=== PATIENT | female | born 1985 | race African-American/Black ===

== ENCOUNTER 2016-08-24 11:50 | Emergency (ER) | payer OTHER ==
[~2016-08-24] VITALS: Ht 152.4 cm; Wt 75.5 kg
[2016-08-24 11:55] VITALS: TEMP 36.9; Ht 152.4 cm; Wt 75.5 kg
[2016-08-24 12:10] VITALS: O2SAT 98
[2016-08-24] MEDS ORDERED: PRLSR20 PO (12:16)
[2016-08-24] MEDS ORDERED: ONDA4TAB46 PO (12:16)
[2016-08-24 12:55] LABS: BASO % 0.2 %; BASO ABS # 0.01 K/uL (0-0.2); COMPLETE YES; EOS % 1.7 %; HEMATOCRIT 41.4 % (37-47); LYMPH % 45.3 %; LYMPH ABS # 2.34 K/uL (1.2-3.4); MEAN CELL VOLUME 85.4 fL (80-100); MEAN CORPUSCULAR HEMOGLOBIN 29.9 pg (25-34); MEAN PLATELET VOLUME 10.2 fL (7.4-10.4); MONO % 6.6 %; NEUT % 46.2 %; PLATELET COUNT 356 K/uL (130-400); RED BLOOD COUNT 4.85 M/uL (4.2-5.4); WHITE BLOOD COUNT 5.16 K/uL (4.8-10.8)
--- NOTE | 2016-08-24 13:08 | DIAGNOSTIC IMAGING REPORT ---
ABDOMINAL ULTRASOUND, RIGHT UPPER QUADRANT HISTORY: Right upper quadrant abdominal pain. COMPARISON: None. FINDINGS: Liver is sonographically normal. There is no biliary ductal dilatation. No gallstones are identified. The pancreatic body is normal. The head and tail are obscured. There is no right hydronephrosis. IMPRESSION: No significant abnormality identified within the right upper quadrant. Electronically signed by: Luke Cristina M.D. 08/24/2016 1:06 PM Dictated Date/Time: 08/24/2016 1:06 PM
[2016-08-24 13:27] LABS: URINE APPEARANCE CLEAR (CLEAR); URINE BILIRUBIN NEG (NEG); URINE COLOR YELLOW; URINE EPITHELIAL CELL AUTO 0-5 /lpf (0-5); URINE NITRITE NEG (NEG); URINE SPECIFIC GRAVITY 1.004 (1.000-1.030); UROBILINOGEN NEG (NEG)
[2016-08-24 13:28] LABS: MANUAL MICROSCOPIC REQUIRED? NO; REVIEW REQ? NO
[2016-08-24 13:39] LABS: ALB/GLOB RATIO 0.9 (0.9-2); ALKALINE PHOSPHATASE 38 U/L (45-117); ALT/SGPT 25 U/L (12-78); BLOOD UREA NITROGEN 8 mg/dl (7-18); BUN/CREATININE RATIO 8.7 (10-20); CALCIUM 9.1 mg/dl (8.5-10.1); CARBON DIOXIDE 28 mmol/L (21-32); CHLORIDE 107 mmol/L (98-107); CREATININE 0.93 mg/dl (0.60-1.20); GLUCOSE 96 mg/dl (70-99); SODIUM 141 mmol/L (136-145)
[2016-08-24] MEDS ORDERED: IBUPROFEN 600 MG TAB PO STA (14:47)
[2016-08-24 16:10] VITALS: BP 116/73; PULSE 62; O2SAT 98
--- NOTE | 2016-08-24 16:31 | EMERGENCY ROOM VISIT NOTE ---
History First contact with patient: 12:02 Chief Complaint: SYNCOPE (NEAR SYNCOPE) Stated Complaint: SYNCOPE,DIZZINESS AND METAL TASTE IN MOUTH Nursing Triage Summary: patient feels SOB passed out last night. she also complains of pressure in her chest. History of Present Illness The patient is a 31 year old -[place] female prisoner who presents to the Emergency Room with complaints of a syncopal episode last night and another this morning. He significant physical activity at the time of the syncopal episodes. She felt short of breath last night prior to the surgery. She states that her blood pressure was initially high last night afterward, but it normalized overnight. She had a second episode today. Complaints of pressure in her chest. She notes there was a smell of fire and a metal taste in her mouth prior to both episodes. These were both witnessed. There was no seizure activity. She states she did have some antinausea medication just prior to both episodes. She denies any cold symptoms. No fevers, chills, sweats, or vomiting. She has had nausea and a mild headache. It does resolve with Motrin. She denies striking her head during either syncopal episode. No change in vision, speech, or hearing. No loss of motor function. She denies any numbness or tingling in her extremities. No prior history of similar episodes. No other treatment. She also states she has had right upper quadrant abdominal pain intermittently for the last several weeks. It has been associated with meals. He does make her nauseated. She is concerned about gallstones. She reportedly had an EKG last night that was unremarkable. Review of Systems REVIEW OF SYSTEM: HEENT: No dizziness, visual problems, hearing loss, or tinnitus. There is no difficulty swallowing and no oral lesions are present. LYMPH: No adenopathy. PULMONARY: No cough, shortness of breath, sputum production or hemoptysis. CARDIOVASCULAR: No chest pain, palpitations, shortness of breath or peripheral edema. GASTROINTESTINAL: No diarrhea, constipation, vomiting, or abdominal pain. GENITOURINARY: No dysuria, frequency, urgency or nocturia. NEUROLOGIC: No weakness, muscle tenderness, epilepsy or history of neurological problems. MUSCULOSKELETAL: No history of joint tenderness/swelling. No history of arthritis or arthralgias. Positive history of Aris's disease. SKIN: No rashes or lesions. PSYCHIATRIC: No history of depression or mental illness. ENDOCRINE: No history of diabetes, thyroid disorders, or abnormal hair growth. Past Medical/Surgical History Previous surgeries: Right leg surgery Medical history: Significant for diabetes and Clare's disease Family History noncontributory Social History Smoking Status: Never Smoker Smokeless Tobacco Use: No Alcohol Use: none Drug Use: none Marital Status: single Housing Status: other (incarcerated) Occupation Status: other (incarcerated) Current/Historical Medications Scheduled Omeprazole (Prilosec), 20 MG PO DAILY Scheduled PRN Ondansetron Hcl (Zofran), 4 MG PO TID PRN for Nausea Allergies Coded Allergies: Iodinated Diagnostic Agents (Verified Allergy, Unknown, HIVES, 08/24/16) Meloxicam (Verified Allergy, Unknown, HIVES, 08/24/16) Penicillins (Verified Allergy, Unknown, HIVES, 08/24/16) Vancomycin (Verified Allergy, Unknown, ANAPHYLAXIS, 08/24/16) Physical Exam Vital Signs Date Time Temp Pulse Resp B/P Pulse Ox O2 Delivery O2 Flow Rate FiO2 08/24/16 16:10 62 24 116/73 98 08/24/16 14:45 67 20 132/95 98 Room Air 08/24/16 13:35 78 08/24/16 13:15 66 24 132/84 97 Room Air 08/24/16 12:26 68 115/87 99 Room Air 08/24/16 12:10 98 Room Air 08/24/16 11:55 36.9 75 16 165/99 98 Room Air Pain Rating (0-10): 0 Physical Exam Gen.: Well-developed, well-nourished, young -[place] female, in no acute distress. Laying on a bed. Alert and oriented. Skin:Warm and dry with good turgor. No rashes or lesions. No ecchymosis or erythema. The patient is not diaphoretic. No abrasions. Multiple tattoos. HEENT: Normocephalic atraumatic. Eyes PERRLA, EOMI. No conjunctiva or scleral injection. Ears TMs intact bilaterally with good light reflexes. No erythema or bulging. No hemotympanum. Canals are patent. Nares patent bilaterally without turbinate enlargement. No significant drainage. No epistaxis. Oropharynx without erythema or exudate. Uvula midline, oral mucosa moist. No lesions present. Heart: Heart RRR. No MGR. Peripheral pulses are 2+. Lungs: Lungs are clear to auscultation. No crackles rhonchi or wheezing. Good air movement. The patient is able to take a deep breath. Abdomen: Abdomen was inspected, auscultated, and palpated. Bowel sounds present x 4. Soft, nontender to palpation. No hepato-splenomegaly. No masses noted. No rebound. No CVA tenderness. Musculoskeletal: Gross motor function of the upper and lower extremities is intact and unremarkable. Neurologic: cranial nerves II through XII are intact. Gross sensation is intact across the upper and lower extremities by soft touch. No focal motor deficit. Medical Decision & Procedures ER Provider Diagnostic Interpretation: EKG obtained today was compared to her previous EKG. They are unremarkable. Sinus rhythm. No acute ST or T-wave changes. Right upper quadrant abdominal ultrasound was obtained today. This was read by radiology as negative for acute cholecystitis or gallstones. Laboratory Results 08/24/16 12:45 Red Blood Count 4.85, Mean Corpuscular Volume 85.4, Mean Corpuscular Hemoglobin 29.9, Mean Corpuscular Hemoglobin Concent 35.0, Mean Platelet Volume 10.2, Neutrophils (%) (Auto) 46.2, Lymphocytes (%) (Auto) 45.3, Monocytes (%) (Auto) 6.6, Eosinophils (%) (Auto) 1.7, Basophils (%) (Auto) 0.2, Neutrophils # (Auto) 2.38, Lymphocytes # (Auto) 2.34, Monocytes # (Auto) 0.34, Eosinophils # (Auto) 0.09, Basophils # (Auto) 0.01 08/24/16 12:45 08/24/16 14:00 Test 08/24/16 12:10 08/24/16 12:45 08/24/16 14:00 Urine Color YELLOW Urine Appearance CLEAR (CLEAR) Urine pH 8.0 (4.5-7.5) Urine Specific [place] 1.004 (1.000-1.030) Urine Protein NEG (NEG) Urine Glucose (UA) NEG (NEG) Urine Ketones NEG (NEG) Urine Occult Blood TRACE (NEG) Urine Nitrite NEG (NEG) Urine Bilirubin NEG (NEG) Urine Urobilinogen NEG (NEG) Urine Leukocyte Esterase NEG (NEG) Urine WBC (Auto) 0 /hpf (0-5) Urine RBC (Auto) 0-4 /hpf (0-4) Urine Hyaline Casts (Auto) 0 /lpf (0-5) Urine Epithelial Cells (Auto) 0-5 /lpf (0-5) Urine Bacteria (Auto) NEG (NEG) Urine Test NEG (NEG) White Blood Count 5.16 K/uL (4.8-10.8) Red Blood Count 4.85 M/uL (4.2-5.4) Hemoglobin 14.5 g/dL (12.0-16.0) Hematocrit 41.4 % (37-47) Mean Corpuscular Volume 85.4 fL (80-100) Mean Corpuscular Hemoglobin 29.9 pg (25-34) Mean Corpuscular Hemoglobin Concent 35.0 g/dl (32-36) Platelet Count 356 K/uL (130-400) Mean Platelet Volume 10.2 fL (7.4-10.4) Neutrophils (%) (Auto) 46.2 % Lymphocytes (%) (Auto) 45.3 % Monocytes (%) (Auto) 6.6 % Eosinophils (%) (Auto) 1.7 % Basophils (%) (Auto) 0.2 % Neutrophils # (Auto) 2.38 K/uL (1.4-6.5) Lymphocytes # (Auto) 2.34 K/uL (1.2-3.4) Monocytes # (Auto) 0.34 K/uL (0.11-0.59) Eosinophils # (Auto) 0.09 K/uL (0-0.5) Basophils # (Auto) 0.01 K/uL (0-0.2) RDW Standard Deviation 41.2 fL (36.4-46.3) RDW Coefficient of Variation 13.2 % (11.5-14.5) Immature Granulocyte % (Auto) 0.0 % Immature Granulocyte # (Auto) 0.00 K/uL (0.00-0.02) Anion Gap 6.0 mmol/L (3-11) Est Creatinine Clear Calc Drug Dose 78.8 ml/min Estimated GFR () 94.3 Estimated GFR (Non- 81.3 BUN/Creatinine Ratio 8.7 (10-20) Calcium Level 9.1 mg/dl (8.5-10.1) Total Bilirubin 0.3 mg/dl (0.2-1) Alanine Aminotransferase (ALT/SGPT) 25 U/L (12-78) Alkaline Phosphatase 38 U/L (45-117) Creatine Kinase MB 1.0 ng/ml (0.5-3.6) Creatine Kinase MB Ratio (0-3.0) Troponin I < 0.015 ng/ml (0-0.045) Total Protein 8.0 gm/dl (6.4-8.2) Albumin 3.8 gm/dl (3.4-5.0) Globulin 4.2 gm/dl (2.5-4.0) Albumin/Globulin Ratio 0.9 (0.9-2) Thyroid Stimulating Hormone (TSH) 1.510 uIu/ml (0.300-4.500) Aspartate Amino Transf (AST/SGOT) 17 U/L (15-37) Total Creatine Kinase 143 U/L (26-192) Chemistry Specimen Hemolysis CBC, chem panel, CK/CK-MB, troponin, UA, urine , TSH, and free T4 were obtained. They are all unremarkable. Medications Administered Medications (Trade) Dose Ordered Sig/Pinky Route Start Time Stop Time Status Last Admin Dose Admin Ibuprofen (Motrin Tab) 600 mg NOW STAT PO 08/24/16 14:47 08/24/16 14:49 DC 08/24/16 15:05 600 MG Ibuprofen 600 mg by mouth ED Course Patient was educated regarding today's findings. Conservative care measures were discussed. IV was established. Labs were obtained. EKG was obtained. Gallbladder ultrasound was also obtained. These were all unremarkable. Patient remained stable while in the ED. She was given Motrin 600 mg for her headache with improvement of her symptoms. I am not sure why she is having the syncopal episodes. Her blood pressure is intermittently elevated. She may require closer monitoring and additional antihypertensives. She may follow-up with the [facility] for this. Return to the ED for any other concerns. Rest as needed. Maintain hydration. Syncope handout was provided. Copies of her lab work and ultrasound were provided for the [facility]. I did consider CT scan imaging of her head, but given her normal neuro exam and lack of focal findings, I do not think it is warranted at this time. Medical Decision Possibility of anemia, electrolyte disturbance, hypothyroidism, acute coronary syndrome, AL, viral illness, , infection, sepsis, intracranial abnormality, and psychiatric source were considered, among others Impression Primary Impression: Syncopal episodes Additional Impression: Right upper quadrant abdominal pain Departure Information Dispostion Home / Self-Care Forms HOME CARE DOCUMENTATION FORM, IMPORTANT VISIT INFORMATION Patient Instructions [facility] Additional Instructions Follow-up with the [facility] Maintain hydration Rest as needed Return to the ED for any other concerns Problem Qualifiers Primary Impression: Syncopal episodes Encounter type: initial encounter
== END 2016-08-24 16:11 | disposition home or self-care (01) ==
LOC: C.EDB 11:52 → C.EDA 16:11
DX: R55 Syncope and collapse (principal); R10.11 Right upper quadrant pain; E11.9 Type 2 diabetes mellitus without complications; M92.50 Unspecified juvenile osteochondrosis of tibia and fibula; Z98.890 Other specified postprocedural states; Z88.0 Allergy status to penicillin; Z88.1 Allergy status to other antibiotic agents; Z88.8 Allergy status to other drugs, medicaments and biological substances; Z91.09 Other allergy status, other than to drugs and biological substances

== ENCOUNTER → 2016-09-16 | Outpatient (CLI) | payer OTHER ==
[~2016-09-16] MED LIST: ONDA4TAB46 PO; PRLSR20 PO
--- NOTE | 2016-09-16 17:35 | EEG Procedure Note ---
EEG Procedure Note Date of Service September 16, 2016. Start / End Times Start Time: 1:11 PM End Time: 1:32 PM Referring Physician Petros Mack History This is a 31-year-old female with seizure-like activity described as a strange tastes in her mouth and loss of awareness. Patient reportedly has had 3-4 events in the last 3 days. EEG for further evaluation of possible seizure etiology. Home Medication List Scheduled Omeprazole (Prilosec), 20 MG PO DAILY Scheduled PRN Ondansetron Hcl (Zofran), 4 MG PO TID PRN for Nausea Description This is a 21 electrode EEG with a single channel dedicated to limited EKG. The electrodes were placed in accordance with the International 10-20 system. At the start of the recording the patient was in an awake state. Background was well organized and composed of symmetric mixed alpha and beta frequencies. There was a symmetric well-formed moderate amplitude 9-10 Hz posterior dominant rhythm that was reactive to eye opening and closure. Hyperventilation hyperventilation produced no abnormalities. Intermittent photic stimulation at various frequencies produced no abnormalities. There was no state changes or sleep transients. Interpretation This is a normal awake only routine EEG. There was no electrographic seizures or epileptiform discharges. Clinical Correlation A normal EEG does not rule out epilepsy if there is a strong clinical suspicion.
== END | disposition home or self-care (01) ==
LOC: C.NEUR 13:20
PROVIDERS: ATTEND Family Medicine
DX: Z72.820 Sleep deprivation (principal)

== ENCOUNTER → 2016-10-30 | Outpatient (CLI) | payer OTHER ==
--- NOTE | 2016-12-29 13:34 | CODING QUERY NO DIAGNOSIS ---
TREATMENT RENDERED WITHOUT A DIAGNOSIS To promote full compliance with coding requirements relating to patient care, physician participation is requested in all cases of track coach uncertainty. Please assist us with providing a diagnosis/symptom for the test(s) below: A diagnosis/symptom was not documented on your Order. A valid diagnosis/symptom is required to bill all insurances. Please remember that we are unable to code a diagnosis of rule out, probable, possible, questionable, or suspected. Tests that require a diagnosis from lab work performed on 10/30/16: * AMMONIA LEVEL DIAGNOSIS: Provider Signature: Date: Thank you Nara Perez [employer] Information Management Once completed, please kindly fax back to [phone] For questions please call [phone]
== END | disposition home or self-care (01) ==
LOC: C.LAB 10:26
PROVIDERS: ATTEND Family Medicine
DX: Z00.00 Encounter for general adult medical examination without abnormal findings (principal)

== ENCOUNTER → 2016-12-01 | Outpatient (CLI) | payer OTHER ==
[~2016-12-01] MED LIST changes: +GADAVIST IV PRN
--- NOTE | 2016-12-01 14:40 | DIAGNOSTIC IMAGING REPORT ---
BRAIN COMBO FOR SEIZURE CLINICAL HISTORY: COMPLEX MIGRAINE WITH SEIZURE CLAUDIO DONOVAN seizures. Headaches. COMPARISON STUDY: No previous studies for comparison. TECHNIQUE: Utilizing a 1.5 Sherin magnet and dedicated coil, multiplanar, multiecho imaging of the brain was performed pre and postcontrast administration. IV administration of 7 mL of Gadavist contrast was uneventful. Thin cut coronal T2 imaging was performed according to seizure protocol. FINDINGS: Diffusion-weighted images are considered negative for an acute ischemic insult. Signal characteristics of the cerebellar as well as cerebral hemispheres are unremarkable. The ventricular system is midline. No abnormal postcontrast enhancement. Sella and parasellar regions are unremarkable. IMPRESSION: Normal study. The above report was generated using voice recognition software. It may contain grammatical, syntax or spelling errors. Electronically signed by: Livan Dorado M.D. 12/01/2016 2:39 PM Dictated Date/Time: 12/01/2016 2:37 PM
== END | disposition home or self-care (01) ==
LOC: C.MRI 13:09
PROVIDERS: ATTEND Family Medicine
DX: G43.909 Migraine, unspecified, not intractable, without status migrainosus (principal)

== ENCOUNTER → 2017-03-05 | Outpatient (CLI) | payer OTHER ==
[~2017-03-05] MED LIST changes: -GADAVIST IV PRN; +MethylPREDNISolone HOME PACK 16 MG TAB PO SCH; +OPTIRAY 320 IV PRN
--- NOTE | 2017-03-05 10:57 | DIAGNOSTIC IMAGING REPORT ---
ABDOMINAL CT WITH INTRAVENOUS CONTRAST HISTORY: Right upper quadrant abdominal pain. HYPERAMMONEMIA TECHNIQUE: Multiaxial CT images of the abdomen were performed following the use of intravenous contrast. COMPARISON STUDY: Abdominal ultrasound 08/24/2016. FINDINGS: The lung bases are essentially clear. No suspicious lytic or blastic osseous lesions. The visualized loops of bowel show no wall thickening or obstruction. Tip of the appendix is prominent at 6.7 mm. However, the appendix fills with gas and there is no periappendiceal fat stranding to suggest an acute appendicitis. A few colonic diverticula. The liver is normal in size. Inferior extension of the right hepatic lobe is considered to be a normal variant. No hepatic or splenic masses. No intrahepatic bile duct dilatation. The hepatic and portal veins enhance normally. The adrenal glands, gallbladder, kidneys, and pancreas are unremarkable. No retroperitoneal lymphadenopathy. IMPRESSION: No significant abnormality within the abdomen. Specifically, the liver is within normal limits. Electronically signed by: Mat Joseph M.D. 03/05/2017 10:55 AM Dictated Date/Time: 03/05/2017 10:47 AM
== END | disposition home or self-care (01) ==
LOC: C.CTS 09:27
PROVIDERS: ATTEND Registered Nurse
DX: E72.20 Disorder of urea cycle metabolism, unspecified (principal)